=== PATIENT | male | born 1940 | race Hispanic/Latino ===

== ENCOUNTER 2018-12-06 19:27 | Emergency (ER) | payer MEDICARE, OTHER ==
[~2018-12-06 19:27] MED LIST: BRIM5DRO OP; CEPH250 PO; CHOL100040 PO; FENO145T37 PO; FLUT16H NASAL; LISI10TA7 PO
[2018-12-06 19:51] LABS: APPEARANCE,URINE Clear (CLEAR); BILIRUBIN,URINE Negative (NEGATIVE); COLOR,URINE Yellow (YELLOW); GLUCOSE, URINE (UA) Negative (NEGATIVE); KETONES,URINE Negative (NEGATIVE); LEUKOCYTE ESTERASE ,URINE Negative (NEGATIVE); NITRATE,URINE Negative (NEGATIVE); OCCULT BLOOD,URINE Trace (NEGATIVE); PH,URINE 5.5 (5.0-8.0); PROTEIN,URINE Negative (NEGATIVE); UROBILINOGEN,URINE 0.2 mg/dL (0.2-1.0)
[2018-12-06 19:57] LABS: BASOPHILS % (AUTO) 0.7 % (0.0-5.0); HEMATOCRIT 35.8 % (42-54); LYMPHOCYTES % (AUTO) 17.7 % (21.0-51.0); MEAN CORPUSCULAR HEMOGLOBIN 31.7 pg (27.0-33.0); MEAN CORPUSCULAR HGB CONC 34.5 g/dL (32.0-36.0); MEAN CORPUSCULAR VOLUME 91.8 fL (79-99); MONOCYTES % (AUTO) 11.7 % (3.0-13.0); NEUTROPHILS % (AUTO) 68.9 % (40.0-77.0); PLATELET COUNT (AUTO) 209 K/uL (130-400); RED CELL DISTRIBUTION WIDTH 13.4 % (11.0-15.5); WHITE BLOOD COUNT (AUTO) 8.6 K/uL (4.8-10.8)
[2018-12-06 20:07] LABS: BACTERIA,URINE Few /HPF (None Seen); WBC,URINE 0-1 /HPF (0-1)
[2018-12-06 20:08] LABS: SQUAMOUS EPITHELIAL CELL,UR Rare /HPF (0-2)
[2018-12-06 20:10] LABS: CREATININE 0.7 mg/dL (0.5-1.5); POTASSIUM 4.5 mmol/L (3.5-5.1)
[2018-12-06] MEDS ORDERED: MORPHINE SULFATE 4 MG/1ML SYG ONE (20:19)
[2018-12-06] MEDS ORDERED: ONDANSETRON HCL 4 MG/2 ML VIAL ONE (20:19)
== END 2018-12-06 22:06 | disposition home or self-care (01) ==
LOC: EDH 19:27
DX: N20.0 Calculus of kidney (principal); N28.1 Cyst of kidney, acquired; M54.6 Pain in thoracic spine; I10 Essential (primary) hypertension; E78.5 Hyperlipidemia, unspecified; E78.00 Pure hypercholesterolemia, unspecified; M81.0 Age-related osteoporosis without current pathological fracture; Z95.0 Presence of cardiac pacemaker; Z85.46 Personal history of malignant neoplasm of prostate
CPT/HCPCS: 36415; 74176; 80048; 81001; 85025; 96374; 96375; 99285; J2270; J2405

== ENCOUNTER → 2020-10-26 | Outpatient (CLI) | payer MEDICARE ==
[~2020-10-26] MED LIST changes: +FENO145T26 PO; -FENO145T37 PO; +LISI10TA24 PO; -LISI10TA7 PO
== END | disposition home or self-care (01) ==
LOC: RAH 12:15
PROVIDERS: ATTEND Internal Medicine Cardiovascular Disease
DX: R60.0 Localized edema (principal)
CPT/HCPCS: 93970

== ENCOUNTER → 2022-08-17 | Outpatient (CLI) | payer MEDICARE | END | disposition home or self-care (01) | LOC: RAH 10:13 | PROVIDERS: ATTEND Internal Medicine Critical Care Medicine | DX: J84.10 Pulmonary fibrosis, unspecified (principal); J84.112 Idiopathic pulmonary fibrosis | CPT/HCPCS: 71250 ==

== ENCOUNTER 2023-01-03 06:51 | Day surgery (SDC) | payer MEDICARE ==
[2022-12-28 12:54] VITALS: BP 144/71; PULSE 60; RESP 18
[2022-12-28 13:27] LABS: BASOPHILS # (AUTO) 0.02 K/uL (0.00-0.20); BASOPHILS % (AUTO) 0.3 % (0.0-5.0); EOSINOPHILS # (AUTO) 0.15 K/uL (0.00-0.70); EOSINOPHILS % (AUTO) 2.3 % (0.0-8.0); HEMATOCRIT 37.2 % (42-54); IMMATURE GRANULOCYTE ABSOLUTE 0.02 K/uL (0-1); LYMPHOCYTES # (AUTO) 1.6 K/uL (1.0-4.8); MEAN CORPUSCULAR HEMOGLOBIN 31.2 pg (27.0-33.0); MEAN CORPUSCULAR VOLUME 97.6 fL (79-99); MONOCYTES # (AUTO) 0.6 K/uL (0.1-1.0); MONOCYTES % (AUTO) 9.5 % (3.0-13.0); NEUTROPHILS % (AUTO) 62.6 % (40.0-77.0); PLATELET COUNT (AUTO) 206 K/uL (130-400); RED BLOOD CELL COUNT(AUTO) 3.81 MIL/uL (4.50-6.20); RED CELL DISTRIBUTION WIDTH 13.1 % (11.0-15.5); WHITE BLOOD COUNT (AUTO) 6.5 K/uL (4.8-10.8)
[2022-12-28 13:31] LABS: CREATININE 0.9 mg/dL (0.5-1.5)
[2022-12-28 13:35] LABS: INR 0.98 (0.85-1.15); PROTHROMBIN TIME 11.4 SEC (9.6-11.6)
[2022-12-28 13:35] LABS: APPEARANCE,URINE CLEAR (CLEAR); BILIRUBIN,URINE NEGATIVE (NEGATIVE); COLOR,URINE COLORLESS (YELLOW); GLUCOSE, URINE (UA) NEGATIVE (NEGATIVE); KETONES,URINE NEGATIVE (NEGATIVE); LEUKOCYTE ESTERASE ,URINE NEGATIVE Leu/uL (NEGATIVE); NITRATE,URINE NEGATIVE (NEGATIVE); OCCULT BLOOD,URINE MODERATE (NEGATIVE); PH,URINE 6.5 (5.0-8.0); PROTEIN,URINE NEGATIVE (NEGATIVE); UROBILINOGEN,URINE 0.2 mg/dL (0.2-1.0)
[2022-12-28 13:37] LABS: ADD UA MICROSCOPIC NO
[2022-12-28 13:37] LABS: PARTIAL THROMBOPLASTIN TIME 30.8 SEC (26.3-35.5)
[2023-01-03] VITALS (19 sets, daily range): BP systolic 144–172; BP diastolic 63–85; PULSE 60–79; RESP 14–22
[~2023-01-03] VITALS: Ht 165.1 cm; Wt 87.8 kg
[~2023-01-03 06:51] MED LIST changes: +ATOR10TA69 PO; -BRIM5DRO OP; -CEPH250 PO; -CHOL100040 PO; -FENO145T26 PO; -FLUT16H NASAL; +FURO20TA4 PO; -LISI10TA24 PO; +LORA10TA7 PO
[2023-01-03] MEDS ORDERED: FENTANYL CITRATE PF 50 MCG/1 ML 5ML AMP IV ONE ×2 (07:07→08:26)
[2023-01-03] MEDS ORDERED: CEFTRIAXONE 1G VIAL ONE (07:10)
[2023-01-03] MEDS ORDERED: LACTATED RINGERS 1000ML 1,000 ML IV ONE (07:10)
[2023-01-03] MEDS ORDERED: SUCCINYLCHOLINE 200MG/10ML SYR ONE (08:03)
[2023-01-03] MEDS ORDERED: DEXAMETHASONE SOD PHOSPHATE 10MG/ML 1ML VIAL ONE (08:03)
[2023-01-03] MEDS ORDERED: LIDOCAINE PF 100MG/5ML (2%) SYRINGE 5ML ONE (08:03)
[2023-01-03] MEDS ORDERED: ONDANSETRON 4MG INJ ONE (08:04)
[2023-01-03] MEDS ORDERED: PROPOFOL 10 MG/ML 20ML VIAL IV ONE (08:04)
[2023-01-03] MEDS ORDERED: IOHEXOL-350 50ML VIAL IV ONE (08:37)
[2023-01-03] MEDS ORDERED: MIDAZOLAM HCL 1 MG/ML 2ML VIAL ONE (08:57)
[2023-01-03] MEDS ORDERED: EPHEDRINE SULFATE 50 MG/ML AMPULE ONE (09:19)
[2023-01-03] MEDS ORDERED: MEPERIDINE-PF 25 MG/ML SYG ONE (10:20)
== END 2023-01-03 12:05 | disposition home or self-care (01) ==
LOC: DAH 06:51
PROVIDERS: ATTEND Urology
DX: N13.2 Hydronephrosis with renal and ureteral calculous obstruction (principal); N13.1 Hydronephrosis with ureteral stricture, not elsewhere classified; I10 Essential (primary) hypertension; E66.9 Obesity, unspecified; G47.30 Sleep apnea, unspecified; E78.5 Hyperlipidemia, unspecified; Z79.899 Other long term (current) drug therapy; Z79.01 Long term (current) use of anticoagulants
CPT/HCPCS: 80048; 85025; 85610; 85730; 87088; 81003; 36415 ×2; 71045; 93005; 52356; 82360; 74420; A6260; A4663; J7030; A4354; C1758; C2617; J7120; J3010 ×2; J0330; J1100; J2001; J3490; J0696; J2250; J2704; J2405; J2175; Q9967; A4358; C1769 ×2; A4930; A4215; A4223; A4222; A4221; A4600

== ENCOUNTER 2023-01-17 06:15 | Day surgery (SDC) | payer MEDICARE ==
[2023-01-14 13:17] LABS: ADD UA MICROSCOPIC YES; APPEARANCE,URINE CLOUDY (CLEAR); BILIRUBIN,URINE NEGATIVE (NEGATIVE); COLOR,URINE COLORLESS (YELLOW); GLUCOSE, URINE (UA) NEGATIVE (NEGATIVE); KETONES,URINE NEGATIVE (NEGATIVE); LEUKOCYTE ESTERASE ,URINE 75 Leu/uL (NEGATIVE); NITRATE,URINE NEGATIVE (NEGATIVE); OCCULT BLOOD,URINE LARGE (NEGATIVE); PH,URINE 7.5 (5.0-8.0); PROTEIN,URINE 50 mg/dL (NEGATIVE); UROBILINOGEN,URINE 0.2 mg/dL (0.2-1.0)
[2023-01-14 13:20] LABS: BACTERIA,URINE RARE /HPF (None Seen); RBC,URINE TNTC /HPF (0-1); SQUAMOUS EPITHELIAL CELL,UR RARE /HPF (0-2)
[2023-01-14 13:58] VITALS: BP 145/69; PULSE 66; RESP 19
[~2023-01-17] VITALS: Ht 165.1 cm; Wt 86.3 kg
[2023-01-17] VITALS (18 sets, daily range): BP systolic 126–164; BP diastolic 59–83; PULSE 60–72; RESP 16–20
[~2023-01-17 06:15] MED LIST changes: +ACET-2743 PO; +ALEN70TA80 PO; +ASCO500C6 PO; +BIMA12.5OS OU; +BRIM5DRO OU; +OMEG100033 PO; +ZINC50TA64 PO
[2023-01-17] MEDS ORDERED: LACTATED RINGERS 1000ML 1,000 ML IV ONE (07:03)
[2023-01-17] MEDS: CEFTRIAXONE 1G VIAL ONE ×2 (07:06→09:13)
[2023-01-17] MEDS ORDERED: GLYCOPYRROLATE 1 MG/5 ML SYRINGE ONE (07:29)
[2023-01-17] MEDS ORDERED: FENTANYL CITRATE PF 50 MCG/1 ML 2ML VIAL ONE (07:29)
[2023-01-17] MEDS ORDERED: PROPOFOL 10 MG/ML 20ML VIAL IV ONE (07:29)
[2023-01-17] MEDS ORDERED: ROCURONIUM 10MG/1ML SYR 10 MG/ML ML ONE (07:29)
[2023-01-17] MEDS ORDERED: LIDOCAINE PF 100MG/5ML (2%) SYRINGE 5ML ONE (07:29)
[2023-01-17] MEDS ORDERED: IOHEXOL-350 50ML VIAL IV ONE (07:52)
[2023-01-17] MEDS ORDERED: FAMOTIDINE 20MG VIAL IV ONE (07:59)
[2023-01-17] MEDS ORDERED: SUGAMMADEX SODIUM 200 MG/2 ML VIAL IV ONE (07:59)
[2023-01-17] MEDS ORDERED: ESMOLOL HCL 10 MG/ML 10 ML VIAL ONE (08:00)
[2023-01-17] MEDS ORDERED: ONDANSETRON 4MG INJ ONE (09:08)
[2023-01-17] MEDS ORDERED: HYDRALAZINE 20MG/ML VIAL ONE (10:57)
[2023-01-17] MEDS ORDERED: BACITRACIN 1 EACH PACKET TP ONE (12:18)
== END 2023-01-17 12:15 | disposition home or self-care (01) ==
LOC: DAH 06:15
PROVIDERS: ATTEND Urology
DX: N20.1 Calculus of ureter (principal); E78.5 Hyperlipidemia, unspecified; I10 Essential (primary) hypertension; M19.90 Unspecified osteoarthritis, unspecified site; Z95.0 Presence of cardiac pacemaker; Z85.46 Personal history of malignant neoplasm of prostate; Z82.49 Family history of ischemic heart disease and other diseases of the circulatory system; Z83.3 Family history of diabetes mellitus; Z87.891 Personal history of nicotine dependence; Z79.899 Other long term (current) drug therapy; Z98.890 Other specified postprocedural states
CPT/HCPCS: 87088; 81001; 52356; 93005; 82360; 36415; 74420; A6260; A4663; J7030; A4354; C1758; J7120; J3490 ×3; J3010; J2001; J0360; J0696; J2704; J2405; Q9967; A4358; A4930; A4215; A4223; A4222; A4221; C1769; A4600

== ENCOUNTER → 2023-02-25 | Outpatient (CLI) | payer OTHER | END | disposition home or self-care (01) | LOC: RAH 09:28 | PROVIDERS: ATTEND Internal Medicine Cardiovascular Disease | DX: Z13.6 Encounter for screening for cardiovascular disorders (principal) | CPT/HCPCS: 75571 ==

== ENCOUNTER → 2023-04-03 | Outpatient (CLI) | payer MEDICARE ==
[~2023-04-03] VITALS: Ht 165.1 cm; Wt 87.0 kg
[2023-04-03 09:49] LABS: ADD UA MICROSCOPIC NO; APPEARANCE,URINE CLEAR (CLEAR); BILIRUBIN,URINE NEGATIVE (NEGATIVE); COLOR,URINE COLORLESS (YELLOW); GLUCOSE, URINE (UA) NEGATIVE (NEGATIVE); KETONES,URINE NEGATIVE (NEGATIVE); LEUKOCYTE ESTERASE ,URINE NEGATIVE Leu/uL (NEGATIVE); NITRATE,URINE NEGATIVE (NEGATIVE); OCCULT BLOOD,URINE NEGATIVE (NEGATIVE); PH,URINE 5.5 (5.0-8.0); PROTEIN,URINE NEGATIVE (NEGATIVE); UROBILINOGEN,URINE 0.2 mg/dL (0.2-1.0)
[2023-04-03 09:55] VITALS: BP 169/91; PULSE 72; RESP 19
[2023-04-03 10:05] LABS: BASOPHILS # (AUTO) 0.02 K/uL (0.00-0.20); BASOPHILS % (AUTO) 0.2 % (0.0-5.0); EOSINOPHILS # (AUTO) 0.15 K/uL (0.00-0.70); EOSINOPHILS % (AUTO) 1.8 % (0.0-8.0); HEMATOCRIT 41.2 % (42-54); IMMATURE GRANULOCYTE ABSOLUTE 0.06 K/uL (0-1); LYMPHOCYTES % (AUTO) 23.6 % (21.0-51.0); MEAN CORPUSCULAR HEMOGLOBIN 29.7 pg (27.0-33.0); MEAN CORPUSCULAR HGB CONC 31.1 g/dL (32.0-36.0); MEAN CORPUSCULAR VOLUME 95.6 fL (79-99); MONOCYTES # (AUTO) 0.8 K/uL (0.1-1.0); MONOCYTES % (AUTO) 8.8 % (3.0-13.0); NEUTROPHILS # (AUTO) 5.5 K/uL (1.8-7.7); NEUTROPHILS % (AUTO) 64.9 % (40.0-77.0); PLATELET COUNT (AUTO) 234 K/uL (130-400); RED BLOOD CELL COUNT(AUTO) 4.31 MIL/uL (4.50-6.20); RED CELL DISTRIBUTION WIDTH 13.2 % (11.0-15.5); WHITE BLOOD COUNT (AUTO) 8.5 K/uL (4.8-10.8)
[2023-04-03 10:29] LABS: INR 0.94 (0.85-1.15); PROTHROMBIN TIME 10.9 SEC (9.6-11.6)
[2023-04-03 10:34] LABS: B-TYPE NATRIURETIC PEPTIDE 63 pg/mL (0-100)
[2023-04-03 10:35] LABS: CREATININE 0.7 mg/dL (0.5-1.5); POTASSIUM 4.1 mmol/L (3.5-5.1)
== END | disposition home or self-care (01) ==
LOC: EDSTATUS 10:00 → DAH 10:00
PROVIDERS: ATTEND Internal Medicine Cardiovascular Disease
DX: Z01.818 Encounter for other preprocedural examination (principal); I25.10 Atherosclerotic heart disease of native coronary artery without angina pectoris; I47.20 Ventricular tachycardia, unspecified; I11.9 Hypertensive heart disease without heart failure; R93.1 Abnormal findings on diagnostic imaging of heart and coronary circulation; G47.33 Obstructive sleep apnea (adult) (pediatric); Z95.0 Presence of cardiac pacemaker; Z79.899 Other long term (current) drug therapy
CPT/HCPCS: 36415; 71045; 80048; 81003; 83880; 85025; 85610; 85730; 93005